=== PATIENT | female | born 1955 | race Caucasian/White ===

== ENCOUNTER 2017-06-02 21:04 | Emergency (ER) | payer OTHER ==
--- NOTE | 2017-06-02 21:44 | ED ---
General Adult HPI - General Chief complaint: Extremity Injury, Lower Stated complaint: knee injury Time Seen by Provider: 06/02/17 21:29 Source: patient Mode of arrival: ambulatory Limitations: no limitations - History of Present Illness Initial comments: Patient is a 61-year-old female who presents to the emergency department for evaluation of right leg pain. Patient reports she has been experiencing right- sided leg pain since , she states she initially thought she had pulled a muscle but the pain has progressively worsened over the course of the weekend so she came to the emergency department for further evaluation. Patient localizes the pain to her posterior thigh radiating down into her calf, the pain is a tightness which is worse with full extension of the leg. Pain is better with rest and worse with any exertion or standing on the leg. Patient denies any pain in her joint or pain with flexing the joint. Patient does report that on she was working in her garden, she does state that she was kneeling for a few minutes but quickly realized that this might cause her worsening knee pain so she decided to sit, she reports that there was approximately 4 hours of Saturday that she sat in a [place] style position. She reports that her pain has been worsening since that time. Patient denies any recent trauma to the leg, any rolling of the ankle or stepping off of any uneven surfaces. She reports no recent long distance travel or immobilization. She states that she has no personal history of DVT or pulmonary embolism but that her mom had recurrent DVTs during her lifetime. A shunt is not currently on any anticoagulation. - Related Data Home Medications Medication Instructions Recorded Confirmed Levothyroxine Sodium [Synthroid] 75 mcg PO DAILY 06/02/17 06/02/17 Omeprazole [PriLOSEC] 20 mg PO DAILY 06/02/17 06/02/17 Pravastatin Sodium [Pravachol] 20 mg PO HS 06/02/17 06/02/17 Triamterene/Hydrochlorothiazid 1 tab PO DAILY 06/02/17 06/02/17 [Triamterene-Hctz 37.5-25 mg Tb] Previous Rx's Medication Instructions Recorded Methocarbamol [Robaxin] 1,000 mg PO QID #30 tab 06/03/17 Allergies Allergy/AdvReac Type Severity Reaction Status Date / Time No Known Allergies Allergy Verified 06/02/17 21:33 Review of Systems ROS Statement: Those systems with pertinent positive or pertinent negative responses have been documented in the HPI. ROS Other: All systems not noted in ROS Statement are negative. Constitutional: Denies: fever, chills, weakness Respiratory: Denies: cough, dyspnea Cardiovascular: Denies: chest pain, palpitations Endocrine: Denies: fatigue Gastrointestinal: Denies: abdominal pain, nausea, vomiting Genitourinary: Denies: urgency, dysuria, frequency, hematuria Musculoskeletal: Reports: myalgia. Denies: back pain, joint swelling, arthralgia Skin: Denies: rash, lesions, change in color, change in hair/nails, pruritus Neurological: Reports: abnormal gait. Denies: headache, weakness, numbness, paresthesias, confusion Psychiatric: Denies: anxiety, depression Hematological/Lymphatic: Denies: easy bleeding, easy bruising Past Medical History Past Medical History: Diabetes Mellitus, Hyperlipidemia, Hypertension, Thyroid Disorder History of Any Multi-Drug Resistant Organisms: None Reported Past Surgical History: Cholecystectomy, Tubal Ligation Past Psychological History: No Psychological Hx Reported Smoking Status: Never smoker Past Alcohol Use History: None Reported Past Drug Use History: None Reported General Exam Limitations: no limitations General appearance: alert, in no apparent distress Head exam: Present: atraumatic, normocephalic, normal inspection Eye exam: Present: normal appearance, PERRL, EOMI. Absent: scleral icterus, conjunctival injection, periorbital swelling ENT exam: Present: normal exam, mucous membranes moist Neck exam: Present: normal inspection. Absent: tenderness, meningismus, lymphadenopathy Respiratory exam: Present: normal lung sounds bilaterally. Absent: respiratory distress, wheezes, rales, rhonchi, stridor Cardiovascular Exam: Present: regular rate, normal rhythm, normal heart sounds, other (Multiple varicose veins in bilateral lower extremities). Absent: systolic murmur, diastolic murmur, rubs, gallop, clicks GI/Abdominal exam: Present: soft, normal bowel sounds. Absent: distended, tenderness, guarding, rebound, rigid Rectal exam: Present: deferred Right Hip exam: Present: full ROM. Absent: tenderness, swelling, laceration, ecchymosis, deformity, crepitus Upper Leg exam: Absent: swelling, abrasion, laceration, ecchymosis, deformity, erythema Knee exam: Present: effusion. Absent: full ROM, tenderness, swelling, abrasion , laceration, ecchymosis, deformity, crepitus, dislocation, erythema, pain/ laxity with valgus, pain/laxity with varus, full knee extension Lower Leg exam: Present: swelling. Absent: laceration, ecchymosis Ankle exam: Present: full ROM Foot/Toe exam: Present: full ROM Neurovascular tendon exam: Absent: pulse deficit, abnormal cap refill, sensory deficit, extremity cold to touch, pallor, decreased fine/light touch, foot drop , significant pain with passive ROM of distal joint Back exam: Present: normal inspection Neurological exam: Present: alert, oriented X3, CN II-XII intact Psychiatric exam: Present: normal affect, normal mood Skin exam: Present: warm, dry, intact, normal color. Absent: rash Course Vital Signs 06/02/17 06/03/17 21:07 00:06 Temperature 98.3 F Pulse Rate 91 74 Respiratory 20 18 Rate Blood Pressure 153/95 116/72 O2 Sat by Pulse 99 96 Oximetry Medical Decision Making - Medical Decision Making The patient was seen and evaluated, vital signs were reviewed History was obtained from the patient and her at bedside Labs, venous Dopplers and Toradol for pain were ordered Labs were unremarkable, no elevation in creatinine kinase, normal electrolytes Results were discussed with the patient who expresses relief, she is awaiting venous Doppler studies Venous Dopplers were performed Patient returned to the ER after Doppler studies, complaining of persistent pain in her right leg from the posterior thigh through to the, by mouth [place] was ordered for pain Venous Dopplers resulted with no acute DVT, these results were discussed with the patient and her at bedside who expressed understanding and relief. I discussed with the patient that I believe this is a muscular spasm or pain. I don't believe it is related to the joint, effusion or any possibility of septic joint. I did advise the patient that she should stop taking her statin medication as this can cause inflammation and pain of the muscles. I advised that once her muscular pain has resolved she should discuss with her primary care physician for consideration for resuming the statin versus another alternative medication. Patient and expressed understanding of this plan. Patient requested a prescription for crutches, prescription was given. Patient was discharged home with a perception for Robaxin for musculoskeletal pain. Shins pertaining to care were answered to the best of my ability and the patient was discharged home in stable condition. - Lab Data Result diagrams: 06/02/17 22:00 06/02/17 22:00 Lab Results 06/02/17 06/02/17 Range/Units 22:00 22:00 WBC 9.3 (3.8-10.6) k/uL RBC 4.49 (3.80-5.40) m/uL Hgb 13.4 (11.4-16.0) gm/dL Hct 39.5 (34.0-46.0) % MCV 88.0 (80.0-100.0) fL MCH 30.0 (25.0-35.0) pg MCHC 34.0 (31.0-37.0) g/dL RDW 13.3 (11.5-15.5) % Plt Count 285 (150-450) k/uL Neutrophils % 49 % Lymphocytes % 42 % Monocytes % 5 % Eosinophils % 2 % Basophils % 1 % Neutrophils # 4.5 (1.3-7.7) k/uL Lymphocytes # 3.9 (1.0-4.8) k/uL Monocytes # 0.5 (0-1.0) k/uL Eosinophils # 0.1 (0-0.7) k/uL Basophils # 0.1 (0-0.2) k/uL Sodium 141 (137-145) mmol/L Potassium 4.3 (3.5-5.1) mmol/L Chloride 106 (98-107) mmol/L Carbon Dioxide 25 (22-30) mmol/L Anion Gap 10 mmol/L BUN 20 H (7-17) mg/dL Creatinine 0.60 (0.52-1.04) mg/dL Est GFR (MDRD) Af Amer >60 (>60 ml/min/1.73 sqM) Est GFR (MDRD) Non-Af >60 (>60 ml/min/1.73 sqM) Glucose 99 (74-99) mg/dL Calcium 9.7 (8.4-10.2) mg/dL Magnesium 1.8 (1.6-2.3) mg/dL Creatine Kinase 118 (30-135) U/L Disposition Clinical Impression: Muscle strain of right lower extremity Disposition: HOME SELF-CARE Condition: Good Instructions: Muscle Strain (ED), Leg Cramps (ED) Prescriptions: Methocarbamol [Robaxin] 1,000 mg PO QID #30 tab Referrals: Corazon Amezcua MD [Primary Care Provider] - 1-2 days
[2017-06-02 22:26] LABS: Basophils # (A) 0.1 k/uL (0-0.2); Basophils % (A) 1 %; CH 29.9; CHCM 34.1; Eosinophils # (A) 0.1 k/uL (0-0.7); Eosinophils % (A) 2 %; HCT 39.5 % (34.0-46.0); HDW 2.37; HGB 13.4 gm/dL (11.4-16.0); Luc # (Auto) 0.18; Luc % (Auto) 2; Lymphocytes # (A) 3.9 k/uL (1.0-4.8); Lymphocytes % (A) 42 %; Monocytes # (A) 0.5 k/uL (0-1.0); Monocytes % (A) 5 %; Neutrophils # (A) 4.5 k/uL (1.3-7.7); Neutrophils % (A) 49 %; RBC 4.49 m/uL (3.80-5.40); RDW 13.3 % (11.5-15.5); WBC 9.3 k/uL (3.8-10.6); WBC (Perox) 8.89
[2017-06-02 22:37] LABS: Anion Gap 10 mmol/L; Blood Urea Nitrogen 20 mg/dL (7-17); Calcium 9.7 mg/dL (8.4-10.2); Carbon Dioxide 25 mmol/L (22-30); Chloride 106 mmol/L (98-107); Creatine Kinase 118 U/L (30-135); Glucose 99 mg/dL (74-99); Magnesium 1.8 mg/dL (1.6-2.3); Non-African American GFR(MDRD) >60 (>60 ml/min/1.73 sqM); Potassium 4.3 mmol/L (3.5-5.1); Sodium 141 mmol/L (137-145)
[2017-06-03 00:07] VITALS: RESP 18
[2017-06-03] MEDS ORDERED: HYDROcodone/APAP 5-325MG 1 EACH TAB PO STA (00:29)
--- NOTE | 2017-06-03 00:39 | US ---
EXAM: US Duplex Bilateral Lower Extremity Veins CLINICAL HISTORY: Reason: Pain TECHNIQUE: Real-time ultrasound scan of the veins of the bilateral lower extremities with color Doppler flow, spectral waveform analysis and compression. COMPARISON: No relevant prior studies available. FINDINGS: Right deep veins: Unremarkable. No DVT in the right common femoral, femoral, proximal deep femoral or popliteal veins. The veins are compressible with normal color flow and augmentation. Right superficial veins: Unremarkable. No thrombus in the visualized right great saphenous vein. Left deep veins: Unremarkable. No DVT in the left common femoral, femoral, proximal deep femoral or popliteal veins. The veins are compressible with normal color flow and augmentation. Left superficial veins: Unremarkable. No thrombus in the visualized left great saphenous vein. Soft tissues: No acute findings. No popliteal cyst. IMPRESSION: Normal bilateral lower extremity duplex venous ultrasound.
[2017-06-03 01:21] VITALS: BP 127/84; PULSE 75; TEMP 98.7
== END 2017-06-03 01:21 | disposition home or self-care (01) ==
LOC: EC 21:04
DX: S86.911A Strain of unspecified muscle(s) and tendon(s) at lower leg level, right leg, initial encounter (principal); E78.5 Hyperlipidemia, unspecified; I10 Essential (primary) hypertension; E07.9 Disorder of thyroid, unspecified; Z79.899 Other long term (current) drug therapy; X50.9XXA Other and unspecified overexertion or strenuous movements or postures, initial encounter; Y93.H2 Activity, gardening and landscaping; Y92.007 Garden or yard of unspecified non-institutional (private) residence as the place of occurrence of the external cause
CPT/HCPCS: 36415; 80048; 82550; 83735; 85025; 93970; 99284